=== PATIENT | male | born 1985 | race African-American/Black ===

== ENCOUNTER → 2020-06-18 | Day surgery (SDC) | payer OTHER ==
[~2020-06-18] MED LIST: BENTYL 20 MG TA20 M1 PO; HYDROCODON-ACE1 EAC7 PO; NOHOMEMEDICATIONS; VENTOLIN HFA INH8 GM INH; ZYRTEC10 M4 PO
--- NOTE | 2020-06-22 11:53 | OP ---
[facility] [address] [place] [address] OPERATIVE REPORT Name: YANET WANG Room: [facility].#: [id number] Admission: 06/18/20 Attend Phys: Aroldo Billings Discharge: Date of : 83 Report #: [id number] THIS REPORT FOR: //name// cc: Physician not on staff Physician not on staff ~ THIS REPORT FOR: //name// CC: Aroldo Billings Physician staff DATE OF SERVICE: 06/18/2020 PREOPERATIVE DIAGNOSIS: Fistula in ano. POSTOPERATIVE DIAGNOSIS: Fistula in ano. OPERATION: Rectal exam under anesthesia with an anal fistulotomy. SURGEON: Aroldo Billings MD. ANESTHESIA: General. ESTIMATED BLOOD LOSS: Minimal. SPECIMEN: None. DESCRIPTION OF PROCEDURE: After informed consent was obtained, the patient was brought to the operating room and placed supine. SCDs were placed and working, preoperative antibiotics were administered, general anesthesia was induced. The patient was placed in the lithotomy position. Digital rectal exam was performed. This demonstrated an external hemorrhoid on the left side. There was a small fistulous opening on the left side, approximately 1.5 cm from the anal verge. This was probed with a lacrimal probe. There was a tunnel that went to the posterior midline. This was superficial and did not involve the anal sphincters. I then opened up the skin measuring approximately 2 cm. The tunnel was then curetted and this performed the fistulotomy. The area was then irrigated and packed with sterile gauze. The area was anesthetized with 20 mL of 0.5% Marcaine. Sterile dressings were applied. COMPLICATIONS: None. DISPOSITION: The patient was taken to recovery in satisfactory condition. <ELECTRONICALLY SIGNED> By: Aroldo Billings MD 06/22/20 1153 [id number] Billings MD /nt
== END | disposition home or self-care (01) ==
LOC: M.SUR
PROVIDERS: ATTEND Surgery
DX: K60.3 Anal fistula (principal); J45.909 Unspecified asthma, uncomplicated; Z79.899 Other long term (current) drug therapy; Z98.890 Other specified postprocedural states; Z87.891 Personal history of nicotine dependence; Z72.89 Other problems related to lifestyle